=== PATIENT | male | born 1990 | race American Indian/Alaskan Native ===

== ENCOUNTER 2021-05-06 10:40 | Emergency (ER) | payer SELFPAY ==
[2021-05-06 11:34] VITALS: BP 168/126
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
== END 2021-05-06 14:54 | disposition home or self-care (01) ==
LOC: ED 10:40
DX: S46.311A Strain of muscle, fascia and tendon of triceps, right arm, initial encounter (principal); V89.2XXA Person injured in unspecified motor-vehicle accident, traffic, initial encounter; Y93.89 Activity, other specified; Y92.89 Other specified places as the place of occurrence of the external cause; Y99.8 Other external cause status
CPT/HCPCS: 99282